=== PATIENT | female | born 1985 | race Two or more races ===

== ENCOUNTER 2022-10-11 11:07 | Emergency (ER) | payer MEDICAID ==
[~2022-10-11] VITALS: Ht 157.5 cm; Wt 90.0 kg
[2022-10-11 12:40] LABS: Urine Bacteria NONE SEEN /hpf (None Seen); Urine Blood Negative /uL (Negative); Urine Specific Gravity 1.017 (1.001-1.035); Urine WBC 1 /hpf (0 - 5)
[2022-10-11] MEDS ORDERED: cefTRIAXone SOD 1,000 MG VL IM ONE (14:15)
[2022-10-11] MEDS ORDERED: ACETAMINOPHEN 500 MG TAB PO ONE (14:15)
[2022-10-11] MEDS ORDERED: CEPH-510 PO (14:17)
[2022-10-11] MEDS ORDERED: ACET1CAP14 PO (14:19)
[2022-10-11 14:35] VITALS: BP 129/76
== END 2022-10-11 14:34 | disposition home or self-care (01) ==
LOC: ER 11:07
DX: N39.0 Urinary tract infection, site not specified (principal); Z88.6 Allergy status to analgesic agent; Z90.49 Acquired absence of other specified parts of digestive tract
CPT/HCPCS: 81001; 87086; 96372; 99283; J0696